=== PATIENT | male | born 1955 | race Caucasian/White ===

== ENCOUNTER 2020-08-29 11:52 | Day surgery (SDC) | payer BC ==
[~2020-08-29] VITALS: Ht 180.3 cm; Wt 65.8 kg
[~2020-08-29 11:52] MED LIST: ADVIL200 M1 PO; ATIVAN1 MG PO; BACLOFEN10 MG; BIOTIN10 MG PO; CALCIUM MAGNES1 EAC1 PO; DECADRON4 MG PO; DICLOFENAC POTA50 MG PO; DIFLUCAN100 MG PO; DOXYCYCLINE HY100 MG PO; ESCITALOPRAM OX10 MG PO; FLOMAX0.4 MG PO; FOLIC ACID0.8 M1 PO; IBUPROFEN200 MG PO; KOMBIGLYZE XR1 EAC2 PO; L-LYSINE500 M1 PO; LIPITOR10 MG PO; MULTI VITAMIN1 EACH PO; NEURONTIN600 MG PO; ONDANSETRON ODT8 MG PO; OXYCODON-ACETA1 EAC2 PO; ST. JOHN'S WOR300 MG PO; VIRTUSSIN AC W473 ML PO; ZYPREXA5 MG PO
[2020-08-29] MEDS ORDERED: JANUMET 50-5001 EACH PO (12:33)
--- NOTE | 2020-08-29 16:33 | NUR ---
08/29/20 1633 Coleen De Anda 1621 PT ARRIVED IN PACU SLEEPY WITH NO C/O'S. ABD SOFT AND PASSING FLATUS. 1630 BLOOD SUGAR 121 ON ARRIVAL.
--- NOTE | 2020-08-31 17:33 | OR ---
[facility] [address], [place] [address] Signed DATE OF OPERATION: 08/29/2020 SURGEON: Frederick Enrique MD PREOPERATIVE DIAGNOSES: 1. Persistent diarrhea. 2. Normal colonoscopy including ileoscopy 2015. 3. Distant history of cholecystectomy. POSTOPERATIVE DIAGNOSES: 1. Sigmoid diverticulosis. 2. Normal-appearing colon and rectum; internal hemorrhoids as well. PROCEDURE: Total colonoscopy to cecum with intubation of ileum and biopsies. ANESTHESIA: Intravenous sedation fentanyl 125 mcg and Versed 5 mg. INDICATION: This 65-year-old white man is a patient of Dr. Rodo Tinajero well known to me from the past. The patient underwent cholecystectomy in the distant past. He has had complaints of diarrhea and urgency and some sensation of "sphincter problems" implying difficult to control bowel from time to time. He was admitted at this time to undergo colonoscopy. He understands the risks of bleeding, infection, and perforation. Notably, he has no prior history of colitis or ileitis, though a colonoscopy in 2016 by me did show mild inflammation of the ileum. FINDINGS: The prep was excellent. Complete colonoscopy was undertaken to the cecum without question. The ileocecal valve and appendiceal orifice were well identified. Intubation of the ileum was undertaken showing no sign of abnormality grossly. Biopsies were taken of the ileum, cecum, and rectum. He did have numerous diverticula of the sigmoid. There was no sign of obstruction. No polyps. No colitis proper. DESCRIPTION OF PROCEDURE: The patient was brought to the endoscopy suite and placed in lateral decubitus position given intravenous sedation in the point of slurred speech and nystagmus. Digital rectal examination was normal including a normal-appearing prostate. He did have some hemorrhoidal changes, it is acknowledged. Electronically Signed By: FREDERICK ENRIQUE MD 08/31/20 1733 PATIENT NAME: RICHARDSON GUZMAN OPERATIVE REPORT DATE OF : 59 REPORT #: [id number] PHYSICIAN: FREDERICK ENRIQUE MD PCP: RODO TINAJERO MD REPORT IS CONFIDENTIAL AND NOT TO BE RELEASED WITHOUT AUTHORIZATION [facility] [address], [place] [address] Signed An Olympus video colonoscope was passed in the rectum and manipulated throughout the colon noting numerous diverticula of the sigmoid and left colon. Scope was ultimately advanced to the cecum. The ileocecal valve and appendiceal orifice appeared normal. With a few manipulations the scope was passed into the ileum. The ileum appeared normal. The scope was passed several cm. Biopsies were taken was normal. Scope was withdrawn to the cecum. Biopsies then taken there. A hemoclip was used as there was persistent oozing of blood at the biopsy site. This was completely hemostatic. The scope was then withdrawn remaining colon appeared normal except for the diverticula of the sigmoid and left colon. The rectum appeared normal, biopsies obtained as well to assess for occult colitis. Internal hemorrhoids were identified. The scope was removed and the patient was taken to the recovery room in good condition. CONCLUDING DIAGNOSES: 1. Diverticulosis. 2. No evidence of polyps or colitis or ileitis. PLAN: We will initiate Metamucil one scoop p.o. daily as a water binding agent. If this is ineffective, would advance to Questran 4 g p.o. q.i.d. tapering to the lowest effective dose. He will see us back in the office in 4-6 weeks. MD SELINA Zelaya/MODL /[id number] cc: Dr. Rodo Tinajero Copies: ~ Electronically Signed By: FREDERICK ENRIQUE MD 08/31/20 1733 PATIENT NAME: RICHARDSON GUZMAN OPERATIVE REPORT DATE OF : 59 REPORT #: [id number] PHYSICIAN: FREDERICK ENRIQUE MD PCP: RODO TINAJERO MD REPORT IS CONFIDENTIAL AND NOT TO BE RELEASED WITHOUT AUTHORIZATION
--- NOTE | 2020-09-04 13:16 | PATH ---
[facility] [address] [place], [place] [address] Signed SPECIMEN(S): A TERMINAL ILEUM SPECIMEN(S): B CECUM BIOPSY SPECIMEN(S): C RECTUM SPECIMEN SOURCE: A. TERMINAL ILEUM B. CECUM BIOPSY C. RECTUM CLINICAL HISTORY: Hx IBS, diarrhea. Dx: Divertic. MICROSCOPIC DESCRIPTION: Histologic sections of all submitted blocks are examined by light microscopy. These findings, together with the gross examination, support the pathologic diagnosis. FINAL PATHOLOGIC DIAGNOSIS: A. Terminal ileum, biopsy: - Ileal mucosa with no histopathologic abnormality. - Negative for active inflammation or granulomata. - Negative for dysplasia or malignancy. B. Colon, cecum, biopsy: - Colonic mucosa with no histopathologic abnormality. - Negative for active, chronic, or microscopic colitis. - Negative for dysplasia or malignancy. C. Rectum, biopsy: - Rectal mucosa with no histopathologic abnormality. - Negative for active or chronic proctitis. - Negative for dysplasia or malignancy. NAL:cml:C2NR GROSS DESCRIPTION: Three specimens are received in three containers, labeled "Marissa." A. The specimen, labeled "Marissa, terminal ileum," is received in formalin and consists of a single arias soft tissue fragment(s) that measure 0.4 cm in greatest dimension. The specimen is entirely submitted in cassette (A1). B. The specimen, labeled "Marissa, cecum biopsy," is received in formalin and consists of a single arias soft tissue fragment(s) that measure 0.4 cm in greatest dimension. The specimen is entirely submitted in cassette (B1). PATIENT NAME: RICHARDSON GUZMAN PATHOLOGY DATE OF : 59 REPORT #: [id number] PHYSICIAN: ZACHARIAH RAMOS PCP: DANE TINAJERO MD REPORT IS CONFIDENTIAL AND NOT TO BE RELEASED WITHOUT AUTHORIZATION [facility] [address] [place] [id number] Signed C. The specimen, labeled "Marissa, rectum," is received in formalin and consists of two arias soft tissue fragment(s) that measure 0.2 cm in greatest dimension. The specimen is entirely submitted in cassette (C1). JW (under the direct supervision of a pathologist) The Gross Description was prepared using a voice recognition system. The report was reviewed for accuracy; however, sound-alike word errors, addition and/or deletions may occur. If there is any question about this report, please contact Client Services. PERFORMING LABORATORY: The technical component was performed by [facility] [address] (Line Fixer: Mary Saez MD; CLIA# [id number]). [facility], [address] [place] [address] (CLIA# [id number]). Diagnostician: Aditi Schroeder MD Pathologist Electronically Signed 09/04/2020 Copies: ~ PATIENT NAME: RICHARDSON GUZMAN PATHOLOGY DATE OF : 59 REPORT #: [id number] PHYSICIAN: ZACHARIAH RAMOS PCP: DANE TINAJERO MD REPORT IS CONFIDENTIAL AND NOT TO BE RELEASED WITHOUT AUTHORIZATION
== END 2020-08-29 17:10 | disposition home or self-care (01) ==
LOC: DS 11:52 → OPS 11:52 → DS 13:00 → OPS 17:10
PROVIDERS: ATTEND Surgery
PROC: 0DBH8ZX Excision of Cecum, Via Natural or Artificial Opening Endoscopic, Diagnostic (ICD-10-PCS; 2020-08-29)
PROC: 0DBP8ZX Excision of Rectum, Via Natural or Artificial Opening Endoscopic, Diagnostic (ICD-10-PCS; 2020-08-29)
PROC: 0DBB8ZX Excision of Ileum, Via Natural or Artificial Opening Endoscopic, Diagnostic (ICD-10-PCS; principal; 2020-08-29 13:00)
DX: K57.30 Diverticulosis of large intestine without perforation or abscess without bleeding (principal); K64.8 Other hemorrhoids; F32.9 Major depressive disorder, single episode, unspecified; B19.20 Unspecified viral hepatitis C without hepatic coma; Z85.89 Personal history of malignant neoplasm of other organs and systems; Z87.891 Personal history of nicotine dependence
CPT/HCPCS: 99153; G0500; J2250; J3010; J7121

== ENCOUNTER 2024-06-22 12:59 | Day surgery (SDC) | payer MEDICARE, OTHER ==
[~2024-06-22] VITALS: Ht 180.3 cm; Wt 67.7 kg
[~2024-06-22 12:59] MED LIST changes: +ACTOS15 MG PO; -BACLOFEN10 MG; +BACLOFEN10 MG PO; -BIOTIN10 MG PO; +BIOTIN10000 MC1 PO; +ECHINACEA EXTR125 MG PO; +EPCLUSA 400 MG1 EACH PO; +IBLOOD GLUCOSE TEST STRIP 1 EA TEST VI PRN; +IBU-200200 MG PO; +JANUMET 50-5001 EACH PO; +JANUMET XR 50-1 EACH PO; +LACTATED RINGER'S 1,000 ML IV SCH; +LIDOCAINE HCL 1% 5 ML SDV INJ ONE; -LIPITOR10 MG PO; +LIPITOR20 MG PO; +METFORMIN HCL500 MG PO; +MIDAZOLAM HCL 5 MG/5 ML VIAL IV PRN; +MILK THISTLE150 MG PO; +QUESTRAN PACKET4 GM PO; +SAW PALMETTO450 MG PO; +URINOZINC PROS100 MG PO; +VIRTUSSIN AC L118 ML PO; +VITAMIN C WIT1000 MG PO; +VITAMIN D21250 MCG PO; +fentaNYL citrate 100 MCG/2 ML VIAL IV PRN
[2024-06-22 13:15] VITALS: BP 128/67
[2024-06-22] MEDS ORDERED: COCONUT OIL100 GM MISC (13:24)
[2024-06-22] MEDS ORDERED: CINNAMON500 MG PO (13:24)
[2024-06-22] MEDS ORDERED: OMEGA 3 FISH O1 EACH PO (13:24)
[2024-06-22] MEDS ORDERED: MIDAZOLAM HCL 5 MG/5 ML VIAL ONE (14:10)
[2024-06-22] MEDS ORDERED: fentaNYL citrate 100 MCG/2 ML VIAL ONE (14:10)
--- NOTE | 2024-06-22 15:08 | NUR ---
06/22/24 1508 Sheets,Samantha 1502 PT ARRIVED TO PACU ON 3L NC, PT WAKES EASILY AND DENIES CONCERNS. VSS. RESP EVEN AND UNLABORED. PT EASILY FALLS BACK TO SLEEP.
[2024-06-22 15:26] VITALS: BP 116/75
--- NOTE | 2024-06-23 12:25 | OR ---
[facility] [address] [place], [place] [address] Signed DATE OF OPERATION: 06/22/2024 SURGEON: Frederick Enrique MD PREOPERATIVE DIAGNOSES: 1. 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 2. 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 POSTOPERATIVE DIAGNOSES: 1. No evidence of stricture or neoplasm; hiatal hernia of proximal stomach. 2. No esophageal varices. 3. Mild antral gastritis. PROCEDURE: Esophagogastroduodenoscopy with biopsy. ANESTHESIA: Intravenous sedation; fentanyl 100 mcg and Versed 2 mg. INDICATION: This 69-year-old white man is a patient of Gabbie Davis MD. He also sees Dr. Srivastava and Dr. Astorga at the [facility]. He was referred for upper endoscopy in relation to prior history of hepatitis C related cirrhosis as well as carcinoma of the throat. He does have reflux symptoms and some dysphagia in the cervical esophagus. This may be related to xerostomia related to radiation therapy to the upper aerodigestive tract. He is noted to have had hepatitis C in the past and secondary cirrhosis. He is admitted to undergo upper endoscopy to better characterize his current situation including that of cervical dysphagia and to assess for portal hypertension manifestation of varices. He understands the risk of bleeding, infection, and perforation and wished to proceed. FINDINGS: There are no varices. He did have a hiatal hernia but no obvious esophagitis proper. There was antral gastritis, however. CLOtest biopsies were negative. The duodenum was normal. The ampulla was well visualized and normal. PROCEDURE IN DETAIL: The patient was brought to the endoscopy suite, given topical lidocaine hypopharyngeal anesthesia, placed in the lateral decubitus position. He was given intravenous sedation to the point of slurred speech and nystagmus with full cardiopulmonary monitoring. A Electronically Signed By: FREDERICK ENRIQUE MD 06/23/24 1225 PATIENT NAME: RICHARDSON GUZMAN OPERATIVE REPORT DATE OF : 59 REPORT #: [id number] PHYSICIAN: FREDERICK ENRIQUE MD PCP: GABBIE DAVIS MD REPORT IS CONFIDENTIAL AND NOT TO BE RELEASED WITHOUT AUTHORIZATION [facility] [address] [place], [place] [address] Signed bite block was placed, though he was edentulous. An Olympus video upper endoscope was passed to the hypopharynx. The vocal cords appeared normal without sign of radiation effect. The scope was easily passed in the proximal esophagus. The esophagus throughout its length was surprisingly normal. There was no sign of varices whatsoever. No Maciel's epithelium or stricture. The scope was passed to the stomach which was insufflated with air. There was no sign of bile staining in the stomach. Rugal folds were normal. The antrum was notable for diffuse gastritis. Pylorus was normal and nondistorted. Scope was passed through into the duodenum. Duodenum was normal including the ampulla which was well visualized. Biopsies were taken of the duodenum to assess for celiac disease. The scope was withdrawn. Biopsies then taken of the antrum for both SONIA and pathologic testing. Retroflexed view confirmed a moderate-sized hiatal hernia. Scope was straightened and withdrawn. Biopsies taken of the distal esophagus and the mid esophagus having demonstrated no esophageal varices to speak of. The remaining proximal esophagus was normal. CONCLUDING DIAGNOSES: 1. Mild diffuse antral gastritis, hiatal hernia without obvious esophagitis and no Maciel's epithelium or stricture. 2. No evidence of esophageal varices related to known cirrhosis. PLAN: Would recommend PPI medication. My review of his medical list does not show that he is on any medication, but he does have epigastric symptoms which could be related to reflux or the gastritis. We will see him back in the office in 4 to 6 weeks as well. MD SELINA Zelaya/NEOL /[id number] cc: Dr. Gabbie Davis Electronically Signed By: FREDERICK ENRIQUE MD 06/23/24 1225 PATIENT NAME: RICHARDSON GUZMAN OPERATIVE REPORT DATE OF : 59 REPORT #: [id number] PHYSICIAN: FREDERICK ENRIQUE MD PCP: GABBIE DAVIS MD REPORT IS CONFIDENTIAL AND NOT TO BE RELEASED WITHOUT AUTHORIZATION [facility] [address] [place] [address] Signed Copies: ~ Electronically Signed By: FREDERICK ENRIQUE MD 06/23/24 1225 PATIENT NAME: RICHARDSON GUZMAN MONICA OPERATIVE REPORT DATE OF : 59 REPORT #: [id number] PHYSICIAN: FREDERICK ENRIQUE MD PCP: GABBIE DAVIS MD REPORT IS CONFIDENTIAL AND NOT TO BE RELEASED WITHOUT AUTHORIZATION
--- NOTE | 2024-06-25 12:53 | PATH ---
[facility] [address] [place], [place] [address] Signed SPECIMEN(S): A DUODENAL BIOPSY SPECIMEN(S): B ANTRUM/PYLORUS BIOPSY SPECIMEN(S): C LOWER ESOPHAGEAL BIOPSY SPECIMEN(S): D MIDDLE ESOPHAGEAL BIOPSY SPECIMEN SOURCE: A. DUODENAL BIOPSY B. ANTRUM/PYLORUS BIOPSY C. LOWER ESOPHAGEAL BIOPSY D. MIDDLE ESOPHAGEAL BIOPSY CLINICAL HISTORY: History of throat cancer, dysphagia, chronic hep C, cirrhosis of liver, chronic gastritis, hiatal hernia FINAL PATHOLOGIC DIAGNOSIS: A. Duodenum, biopsy: - No significant histopathology. B. Stomach, antrum/pylorus, biopsy: - No significant histopathologic alterations. C. Esophagus, lower, biopsy: - Reflux esophagitis. - No evidence of Maciel's esophagus. D. Esophagus, middle, biopsy: - Portions of unremarkable squamous mucosa. COMMENT: A. The sections from the duodenal biopsy show portions of duodenal mucosa with long fingerlike villi. There is no villous atrophy, crypt hyperplasia or intraepithelial lymphocytosis making a diagnosis of celiac disease unlikely. There is no evidence of peptic duodenitis, microorganisms, abnormal infiltrates or neoplasia. B. The sections through the gastric biopsies show fragments of histologically unremarkable antral mucosa. There is no evidence of acute or chronic inflammation. There is no evidence of H. pylori, intestinal metaplasia, abnormal infiltrates or neoplasia. C. The sections through the biopsy show strips of reactive appearing squamous mucosa with basal cell hyperplasia. The epithelium is infiltrated by lymphocytes and small numbers of eosinophils. No glandular mucosa or intestinal metaplasia is identified. D. The biopsy shows normal appearing squamous epithelium. There is no evidence PATIENT NAME: RICHARDSON GUZMAN PATHOLOGY DATE OF : 59 REPORT #: [id number] PHYSICIAN: ZACHARIAH PATHOLOGY PCP: LEON DAVIS MD REPORT IS CONFIDENTIAL AND NOT TO BE RELEASED WITHOUT AUTHORIZATION [facility] [address] [place], [place] [address] Signed of acute or chronic inflammation. No glandular mucosa is present. [facility] MICROSCOPIC EXAMINATION: Histologic sections of all submitted blocks are examined by light microscopy. These findings, together with the gross examination, support the pathologic diagnosis. GROSS DESCRIPTION: A. The specimen, labeled and designated "Marissa, duodenal biopsy," is received in formalin and consists of two arias soft tissue fragments, ranging from 0.2-0.4 cm. Entirely submitted in (A1). B. The specimen, labeled and designated "Marissa, antrum/pylorus biopsy," is received in formalin and consists of two arias soft tissue fragments, ranging from 0.2-0.3 cm. Entirely submitted in (B1). C. The specimen, labeled and designated "Marissa, lower esophageal biopsy," is received in formalin and consists of two arias soft tissue fragments, ranging from 0.2-0.8 cm. Entirely submitted in (C1). D. The specimen, labeled and designated "Marissa, middle esophageal biopsy," is received in formalin and consists of three arias soft tissue fragments, ranging from 0.1-0.4 cm. Entirely submitted in (D1). VB (under the direct supervision of a pathologist) The Gross Description was prepared using a voice recognition system. The report was reviewed for accuracy; however, sound-alike word errors, addition and/or deletions may occur. If there is any question about this report, please contact Client Services. ADDITIONAL NOTES: Immunohistochemical and/or in situ hybridization studies if performed in this case included appropriate positive controls that reacted as expected. This test was developed and its performance characteristics determined by [facility]. It has not been cleared or approved by the U.S. Food and Drug Administration. The FDA has determined that such clearance or approval is not necessary. This test is used for clinical purposes. It should not be regarded as investigational or for research. [facility] is certified under the Clinical Laboratory Improvement Amendments of 1988 (CLIA) as qualified to perform high complexity clinical laboratory testing. PATIENT NAME: RICHARDSON GUZMAN PATHOLOGY DATE OF : 59 REPORT #: [id number] PHYSICIAN: Medius RICHARD PCP: LEON DAVIS MD REPORT IS CONFIDENTIAL AND NOT TO BE RELEASED WITHOUT AUTHORIZATION [facility] [address] [place], [place] [address] Signed PERFORMING LABORATORY: Technical component was performed by [facility], [address] [place] [address] (CLIA# [id number]). Professional interpretation was performed by [facility], [address] [place] [address] (CLIA#:[id number]). Diagnostician: Ford Garcia MD Pathologist Electronically Signed 06/25/2024 Copies: ~ PATIENT NAME: MARISSARICHARDSON MONICA PATHOLOGY DATE OF : 59 REPORT #: [id number] PHYSICIAN: ZACHARIAH PATHOLOGY PCP: LEON DAVIS MD REPORT IS CONFIDENTIAL AND NOT TO BE RELEASED WITHOUT AUTHORIZATION
== END 2024-06-22 15:40 | disposition home or self-care (01) ==
LOC: DS 12:59
PROVIDERS: Surgery; ATTEND Internal Medicine Gastroenterology
PROC: 0DB68ZX Excision of Stomach, Via Natural or Artificial Opening Endoscopic, Diagnostic (ICD-10-PCS; 2024-06-22)
PROC: 0DB98ZX Excision of Duodenum, Via Natural or Artificial Opening Endoscopic, Diagnostic (ICD-10-PCS; principal; 2024-06-22 14:15)
DX: K21.00 Gastro-esophageal reflux disease with esophagitis, without bleeding (principal); K29.70 Gastritis, unspecified, without bleeding; K44.9 Diaphragmatic hernia without obstruction or gangrene; K74.60 Unspecified cirrhosis of liver; B18.2 Chronic viral hepatitis C; Z85.89 Personal history of malignant neoplasm of other organs and systems; Z79.899 Other long term (current) drug therapy
CPT/HCPCS: 88305; 99153; G0500; J2250; J3010; J7121